=== PATIENT | female | born 1955 | race Caucasian/White ===

== ENCOUNTER → 2022-12-06 09:51 | Outpatient (CLI) | payer MEDICARE, OTHER, SELFPAY ==
--- NOTE | 2022-12-06 09:52 | DI.RAD.S_ITS ---
PROCEDURE: XR HIP W PEL IF DONE LT 2V INDICATIONS: left hip pain TECHNIQUE: AP pelvis with lateral view(s) of the left hip(s). COMPARISON: None. FINDINGS: Bones: No fractures or dislocations. Pelvic ring appears intact. No suspicious bony lesions. Mild bilateral hip joint space narrowing and periarticular osteophyte formation. Soft tissues: The visualized bowel gas pattern is normal. No suspicious soft tissue calcifications. IMPRESSION: Bilateral hip osteoarthritis. No acute fracture. No osseous lesion. If symptoms and/or clinical suspicion for pathology persist, further assessment with repeat, or advanced imaging (e.g., CT, MRI, or bone scan) may be helpful for further assessment. Dictated by: Joss Gruber M.D. on 12/06/2022 at 14:26 Approved by: Joss Gruber M.D. on 12/06/2022 at 14:26
== END ==
PROVIDERS: PCP Student in an Organized Health Care Education/Training Program; Referring Provider Student in an Organized Health Care Education/Training Program; Visit Provider Student in an Organized Health Care Education/Training Program
DX: M25.552 Pain in left hip (principal); M16.0 Bilateral primary osteoarthritis of hip
CPT/HCPCS: 73502

== ENCOUNTER → 2022-12-21 08:30 | Outpatient (CLI) | payer MEDICARE, OTHER, SELFPAY ==
--- NOTE | 2022-12-21 09:00 | DI.MRI.S_ITS ---
PROCEDURE: MR HIP LT WO CON INDICATIONS: left hip pain TECHNIQUE: Noncontrast coronal T1 spin echo and STIR through the bony pelvis. Coronal and axial T2 fast spin echo with fat saturation, sagittal T1 spin echo, and oblique axial T2 fast spin echo with fat saturation through the hip. COMPARISON: [facility], CR, XR HIP W PEL IF DONE LT 2V, 12/06/2022, 10:04. FINDINGS: Image quality: Excellent. Bones and joints: [id number] bilateral hip joint osteoarthritic changes are seen with superior joint space narrowing, subchondral sclerosis and small marginal osteophyte formation. There is no marrow edema. No intraosseous lesions or fractures. No avascular necrosis of the femoral heads. The visualized lower lumbar spine appears normally aligned. Tendons and ligaments: Distal left gluteus medius and minimus tendinosis at their insertion on greater trochanter is seen, without associated muscle atrophy. The nearby proximal iliotibial band also appears intact. The iliopsoas tendon appears intact, without adjacent bursal fluid collections or evidence for impingement syndrome. Tendinosis involving origins of hamstring tendons at ischial tuberosity is also noted. Labrum and cartilage: There is fraying of superior anterior left hip labrum at 1 to 2 o'clock position with signal abnormality consistent with superior anterior left hip labral tear. Diffuse thinning of articulating cartilages over left femoral head is also seen. The alpha angle of the femur is within normal limits at less than 55 degrees. Soft tissues: Visualized muscles demonstrate normal bulk and internal signal. Quadratus femoris muscle demonstrates no internal edema to suggest ischiofemoral impingement. The proximal sciatic neurovascular bundle appears normal adjacent to the hamstring tendons. No free pelvic fluid. Bladder wall thickness is normal. Genitourinary structures and bowel loops appear normal where visualized. IMPRESSION: 1. Tjhi-ab-[id number] bilateral hip joint osteoarthritis. No pelvic or hip fracture. No evidence of avascular necrosis. 2. Distal left gluteus medius and minimus tendinosis. Tendinosis involving hamstring tendon origins at ischial tuberosity. No other muscle or tendon signal abnormality is seen. 3. Suggestion of superior anterior left hip labral tear at 1 to 2 o'clock position. Dictated by: Reece Snyder M.D. on 12/23/2022 at 9:50 Approved by: Reece Snyder M.D. on 12/23/2022 at 9:54
== END ==
PROVIDERS: PCP Student in an Organized Health Care Education/Training Program; Referring Provider Student in an Organized Health Care Education/Training Program; Visit Provider Student in an Organized Health Care Education/Training Program
DX: M16.0 Bilateral primary osteoarthritis of hip (principal); M25.552 Pain in left hip
CPT/HCPCS: 73721

== ENCOUNTER 2023-02-27 10:34 | Day surgery (SDC) | payer MEDICARE, OTHER, SELFPAY ==
--- NOTE | 2023-02-27 | PATH_ITS ---
[facility] Accession Number: [id number] No. of containers..01 Tissue . 01 Material submitted: . cecum - CECAL POLYP . 01 Diagnosis: Cecal Polyp: Sessile serrated adenoma. MRV 03/04/2023 1636 Local . 01 Electronically signed: . Rusty Wang MD, PhD, Pathologist NPI- [id number] . 01 Gross description: . CECAL POLYP: Received in formalin is multiple fragment(s) of [place], soft tissue measuring 1.2 x 0.5 x 0.1 cm in aggregate submitted entirely in 1 cassette(s) /AAY 02/28/2023 0503 Local . 01 Pathologist provided ICD-10: D12.0 . 01 CPT . 683038 Specimen Comment: A courtesy copy of this report has been sent to [phone] Performed at: 01 [facility] [address] [place] [address], [place], [place] [id number] MD Zac Esposito MD Phone: [phone]
[2023-02-27 10:50] VITALS: BMI 40.6
[2023-02-27 10:59] VITALS: BP 154/88; PULSE 70; RESP 16; TEMP 36.4; O2SAT 99
[2023-02-27] MEDS: LACTATED RINGERS 1,000 ML 42 ML IV (11:05)
--- NOTE | 2023-02-27 11:37 | PM.HP.1 ---
History of Present Illness History of Present Illness Date Patient Seen: 02/27/23 Time Patient Seen: 11:37 Chief complaint: Colonoscopy Narrative: Qi is a 67-year-old woman with a personal history of colon polyps. She reports that she has never had a complete colonoscopy. Her last virtual colonoscopy was [address] in [place]. No family history of colon cancer. PFS Social History household members: spouse Smoking Status: Never smoker alcohol intake: current Meds Home Medications and Allergies Home Medications Medication Instructions Recorded Confirmed Type atenolol 50 mg tablet 50 mg PO DAILY 11/28/22 02/27/23 History spironolactone 25 mg tablet 25 mg PO DAILY 11/28/22 02/27/23 History levothyroxine 125 mcg capsule 125 mcg PO DAILY #90 caps 02/26/23 02/27/23 Rx Allergies Allergy/AdvReac Type Severity Reaction Status Date / Time atorvastatin [From Lipitor] AdvReac Intermediate Rash Verified 02/27/23 10:50 Exam Vital Signs (past 8 hours): - 02/27/23 10:59 Temperature 97.5 F L Pulse Rate 70 Respiratory Rate 16 Blood Pressure 154/88 H Pulse Oximetry 99 Oxygen Delivery Method Room Air Oxygen Delivery Method Room Air Const General: No acute distress Nutritional Appearance: obese Resp Effort & Inspection: normal respiratory effort Skin General: no rashes or lesions noted Assessment & Plan Assessment and plan (1) Colon cancer screening: Status: Acute Plan We reviewed the risks and benefits of colonoscopy and she would like to proceed.
--- NOTE | 2023-02-27 12:20 | PM.OP.COLON ---
Operative Date/Time/Diagnoses Date of procedure: 02/27/23 Time of procedure: 12:20 Pre-op diagnosis: History of polyps Post-op diagnosis: same Procedure & Clinicians Study performed: Colonoscopy Same procedure as scheduled: Yes Surgeon: Nader Owen Procedure Notes Procedure in detail: Surgeon: Nader Owen MD Anesthesia: Geeta Jara CRNA Procedure: The patient was brought to the endoscopy suite, placed in left lateral decubitus position. The patient was connected to monitoring devices. A time-out was performed. Sedation was administered. Once the patient was adequately sedated, a digital rectal exam was performed and was normal. The scope was then inserted and advanced with some difficulty to the cecum. It required abdominal pressure, repositioning into the supine position and the scope stiffener to reach the cecum. The scope was then slowly withdrawn over greater than 6 minutes. There was a 1 cm flat polyp in the cecum removed with a cold snare. There were rare diverticula in the sigmoid colon. The scope was retroflexed in the rectum. Internal hemorrhoids were noted. The scope was straightened and removed. The patient was awakened and brought to recovery. Scope withdrawal time: 14 minutes Sedation time: 38 minutes EBL: 2 mL Findings: Cecal polyp, rare sigmoid diverticula and internal hemorrhoids. Redundant colon Post-procedure Disposition: PACU
[2023-02-27 12:22] VITALS: BP 118/61; PULSE 63; RESP 16; TEMP 36.2; O2SAT 98
[2023-02-27 12:26] VITALS: BP 118/66; PULSE 61; RESP 16; TEMP 36.2; O2SAT 98
[2023-02-27 12:31] VITALS: BP 118/78; PULSE 63; RESP 16; TEMP 36.2; O2SAT 98
== END 2023-02-27 12:45 | disposition home or self-care (01) ==
PROVIDERS: PCP Student in an Organized Health Care Education/Training Program; Referring Provider Surgery; Visit Provider Surgery
PROC: 0DJD8ZZ Inspection of Lower Intestinal Tract, Via Natural or Artificial Opening Endoscopic (ICD-10-PCS; CPT 45378; principal; 2023-02-27 11:45)
DX: Z12.11 Encounter for screening for malignant neoplasm of colon (principal); Z86.010 Personal history of colon polyps; K57.30 Diverticulosis of large intestine without perforation or abscess without bleeding; K64.8 Other hemorrhoids; D12.0 Benign neoplasm of cecum
CPT/HCPCS: 45385; J1885; J2704

== ENCOUNTER → 2023-11-14 10:20 | Outpatient (CLI) | payer MEDICARE, OTHER, SELFPAY ==
[2023-11-14 12:21] LABS: Add Manual Diff / Slide Review NO; Basophils Absolute Auto 100 /uL (0-100); Basophils Percent Auto 0.7 % (0-2); Eosinophils Absolute Auto 100 /uL (0-450); Eosinophils Percent Auto 0.9 % (2-4); Hematocrit 42.1 % (36-46); Hemoglobin 14.4 g/dL (12.0-16.0); Lymphocytes Absolute Auto 1900 /uL (1100-4500); Lymphocytes Percent Auto 25.9 % (25-40); Mean Corpuscular HGB Conc 34.2 % (30-36); Mean Corpuscular Hemoglobin 32.2 PG (26-34); Mean Corpuscular Volume 93.9 fL (80-100); Monocytes Absolute Auto 700 /uL (0-900); Monocytes Percent Auto 8.9 % (3-14); Neutrophils Absolute Auto 4700 /uL (1500-7000); Neutrophils Percent Auto 63.6 % (50-75); Platelet Count 292 X10^3/uL (150-400); Red Blood Cell Count 4.48 X10^6/uL (4.0-5.2); Red Cell Distribution Width 12.4 % (11.6-14.8); White Blood Cell Count 7.4 X10^3/uL (4.5-11.0)
[2023-11-14 12:39] LABS: Alanine Aminotransferase 11 IU/L (<35); Albumin 4.1 g/dL (3.5-5.0); Albumin Globulin Ratio 1.3 (1.0-2.8); Alkaline Phosphatase 62 U/L (38-126); Aspartate Aminotransferase 19 IU/L (14-36); BUN Creatinine Ratio 17.8 (6-22); Bilirubin Total 1.5 mg/dL (0.2-1.3); Blood Urea Nitrogen 13 mg/dL (7-17); Calcium 9.5 mg/dL (8.4-10.2); Carbon Dioxide 29 mmol/L (22-32); Chloride 104 mmol/L (98-107); Cholesterol 253 mg/dL (140-199); Estimated Glomerular Filt Rate > 60 mL/min (>60); Globulin 3.2 g/dL (1.7-4.1); Glucose 99 mg/dL (80-110); HDL Cholesterol 42 mg/dL (40-60); HEMOLYSIS < 15 (0-50); LDL Cholesterol Calculated 181 mg/dL (<100); Potassium 3.7 mmol/L (3.4-5.1); Sodium 140 mmol/L (137-145); Total Protein 7.3 g/dL (6.3-8.2); Triglycerides 149 mg/dL (35-150)
[2023-11-14 12:55] LABS: Hemoglobin A1C% w Est Avg Glu 5.5 % (4.0-6.0)
[2023-11-14 13:10] LABS: TSH w/ Reflex to FT4 1.91 uIU/mL (0.47-4.68)
== END ==
PROVIDERS: PCP Student in an Organized Health Care Education/Training Program; Referring Provider Student in an Organized Health Care Education/Training Program; Visit Provider Student in an Organized Health Care Education/Training Program
DX: E07.9 Disorder of thyroid, unspecified (principal); E66.01 Morbid (severe) obesity due to excess calories; E03.9 Hypothyroidism, unspecified; Z13.220 Encounter for screening for lipoid disorders
CPT/HCPCS: 36415; 80053; 80061; 83036; 84443; 85025

== ENCOUNTER 2023-12-16 12:21 | Emergency (ER) | payer MEDICARE, OTHER, SELFPAY ==
[2023-12-16 12:34] VITALS: PULSE 47; RESP 16; O2SAT 96; BMI 41.3
--- NOTE | 2023-12-16 12:53 | ED_ITS ---
HPI - Trauma General Chief Complaint: Trauma Stated Complaint: fell last night- shoulder, knee pain Time Seen by Provider: 12/16/23 12:52 Source: patient Mode of arrival: Family Vehicle History of Present Illness HPI narrative: Patient is a 68-year-old female history of hypertension hypothyroidism hyperlipidemia presents to the emergency department after mechanical trip and fall yesterday. States that she was going down some stairs fell, states it was approximately 3 stairs, denies head strike denies loss of consciousness but had immediate pain to her left shoulder as well as her hips. Was able to stand bear weight ambulate immediately after this, states that she has had improved pain after the fall yesterday but is still having persistent left shoulder pain therefore decided come into the ED for further evaluation treatment. She has not on any blood thinners is able to stand bear weight ambulate unassisted. Related Data Home Medications Medication Instructions Recorded Confirmed levothyroxine 125 mcg tablet 125 mcg PO QAM 12/16/23 12/16/23 rosuvastatin 10 mg tablet 10 mg PO DAILY 12/16/23 12/16/23 Previous Rx's Medication Instructions Recorded atenolol 50 mg tablet 50 mg PO BID #60 tabs 11/14/23 spironolactone 25 mg tablet 25 mg PO DAILY #90 tabs 11/14/23 cyclobenzaprine 10 mg tablet 10 mg PO BEDTIME PRN muscle spasm 12/16/23 7 days #7 tabs naproxen 500 mg tablet (Naprosyn) 500 mg PO BID PRN pain 5 days #10 12/16/23 tabs Allergies Allergy/AdvReac Type Severity Reaction Status Date / Time atorvastatin [From Lipitor] AdvReac Intermediate Rash Verified 12/16/23 12:43 Review of Systems Review of Systems Narrative: General: Denies fever, chills, weight loss HEENT: Denies headache, eye drainage, eye irritation, head trauma, sore throat, voice change Cardiovascular: Denies any chest pain, palpitations, shortness of breath, tachycardia Respiratory: Denies any shortness of breath, cough, wheeze, stridor GI/: Denies any abdominal pain, nausea, vomiting, diarrhea, bright red blood per rectum, melanotic stools, urinary frequency, urinary retention, dysuria, hematuria MSK: Positive left shoulder pain, positive bilateral hip pain Skin: Denies any rashes, lesions, discoloration Neuro: Denies any headache, lightheadedness, dizziness, fainting, weakness Psych: Denies SI/HI Patient History Social History household members: spouse Smoking Status: Never smoker alcohol intake: current Smoking Status: Never smoker alcohol intake frequency: a few times a week Substance Use Type: does not use Exam Narrative Exam Narrative: General: Cooperative, comfortable, well-developed, not in acute distress HEENT: Normocephalic, atraumatic, PERRLA, normal sclera, eyelids normal, Neck: Active full range of motion, atraumatic Chest: Normal to inspection, negative crepitus, no overlying erythema ecchymosis Respiratory: Normal respiratory effort, not in acute respiratory distress, clear to auscultation bilaterally negative cough, wheeze, tachypnea, rhonchi, rales Cardiology: Regular rate rhythm negative gallop, murmur, rubs GI/: Normal to inspection, soft, nonrigid, no tenderness to palpation, exam deferred MSK: Full range of active range of motion of all 4 extremities, patient with ecchymosis noted to the anterior right thigh, otherwise no crepitus neurovascularly intact no tenderness to palpation of any bony prominences. Patient has full passive range of motion of the left shoulder however decreased active secondary to pain neurovascularly intact no overlying erythema ecchymosis Skin: No rashes lesions noted Neuro: Alert awake oriented x3, moves all 4 extremities spontaneously, cranial nerves intact, able to answer all questions appropriately follows commands appropriately Psych: Cooperative, negative suicidal or homicidal ideations Initial Vital Signs Initial Vital Signs: Vital Signs Pulse Rate 47 L 12/16/23 12:34 Respiratory Rate 16 12/16/23 12:34 Pulse Oximetry 96 12/16/23 12:34 Oxygen Delivery Method Room Air 12/16/23 12:34 Course Orders Ordered: ED Orders 12/16/23 12:52 XR shoulder LT min 2V Stat 12/16/23 12:58 XR pelvis 1-2V Stat Vital Signs Vital signs: Vital Signs - 8 hr 12/16/23 12:34 12/16/23 12:56 12/16/23 13:00 Pulse Rate 47 L 54 L 52 L Respiratory Rate 16 Pulse Oximetry 96 95 96 Oxygen Delivery Method Room Air 12/16/23 13:30 Pulse Rate 49 L Respiratory Rate Pulse Oximetry 98 Oxygen Delivery Method MDM - Trauma Differential Diagnosis Differential diagnosis: Likely other (Muscle contusion, fracture, abrasion) Imaging Data Extremity x-ray #1: Radiologist's Impression: [address] [address] XRay Report Signed Patient: Qi Mullins MR#: [id number] : 1955 Acct:[id number] Age/Sex: 68 / F Date of Service: 12/16/23 Loc: ED Accession Number: [id number] Procedure: XR pelvis 1-2V Ordering Provider: Ricky Mckay D.O. PROCEDURE: XR PELVIS 1-2V INDICATIONS: Pain after fall TECHNIQUE: 1 view(s) of the pelvis acquired. COMPARISON: None. FINDINGS: Bones: No fractures or dislocations. No suspicious bony lesions. Soft tissues: Visualized bowel gas pattern is normal. No suspicious soft tissue calcifications. IMPRESSION: No acute fracture. No osseous lesion. If symptoms and/or clinical suspicion for pathology persist, further assessment with repeat, or advanced imaging (e.g., CT, MRI, or bone scan) may be helpful for further assessment. Extremity x-ray #2: Radiologist's Impression: [address] [address] XRay Report Signed Patient: Qi Mullins MR#: [id number] : 1955 Acct:[id number] Age/Sex: 68 / F Date of Service: 12/16/23 Loc: ED Accession Number: [id number] Procedure: XR shoulder LT min 2V Ordering Provider: Ricky Mckay D.O. PROCEDURE: XR SHOULDER LT MIN 2V INDICATIONS: fall, pain TECHNIQUE: 3 views of the shoulder were acquired. COMPARISON: None. FINDINGS: Bones: No fractures or dislocations. No suspicious bony lesions. Visualized ribs appear intact. Soft tissues: No suspicious soft tissue calcifications. IMPRESSION: No acute fracture. No osseous lesion. If symptoms and/or clinical suspicion for pathology persist, further assessment with repeat, or advanced imaging (e.g., CT, MRI, or bone scan) may be helpful for further assessment. [facility] Narrative Medical decision making narrative: Patient is a 68-year-old female who presented after mechanical trip and fall for 24 hours ago without head strike not on blood thinners complaining of persistent left shoulder pain but denies any numbness weakness tingling, as well as bilateral hip pain. She was able to stand bear weight ambulate immediately after the fall, has had improved symptoms of her pain but given persistent pain to her left shoulder decided come into the ED for further evaluation treatment. X-rays performed here in the emergency department did not show any acute fr actures, patient neurovascularly intact in bilateral upper lower extremities patient's imaging physical exam symptoms more consistent with muscle contusion, patient was given strict return precautions she verbalized understanding of this and agrees to being discharged home with outpatient follow up, she will be sent home with analgesics. Discharge Plan Departure Patient Disposition: Home Clinical Impression: Contusion of muscle Activity Restrictions/Additional Instructions: Please follow up with primary care Please read the discharge instructions sheet carefully and bring all papers to all doctor follow-up visits, as it may contain information that your doctor may want to see. Disease processes change and evolve, if your symptoms worsen or if you develop any new symptoms that are concerning to you please return for evaluation. Your evaluation today does not show any evidence of any life- threatening/serious illnesses requiring admission to the hospital or surgery. Please follow-up with your doctor for re-evaluation in approximately 1 day. Seek immediate medical attention for any worrisome symptoms. Prescriptions: New cyclobenzaprine 10 mg tablet 10 mg PO BEDTIME PRN (Reason: muscle spasm) 7 Days Qty: 7 0RF naproxen [Naprosyn] 500 mg tablet 500 mg PO BID PRN (Reason: pain) 5 Days Qty: 10 0RF No Action atenolol 50 mg tablet 50 mg PO BID Qty: 60 5RF spironolactone 25 mg tablet 25 mg PO DAILY Qty: 90 3RF levothyroxine 125 mcg tablet 125 mcg PO QAM rosuvastatin 10 mg tablet 10 mg PO DAILY Referrals: Norma Albrecht MD [Primary Care Provider] - Stand Alone Forms: Patient Portal/API
[2023-12-16 12:56] VITALS: PULSE 54; O2SAT 95
--- NOTE | 2023-12-16 12:58 | DI.RAD.S_ITS ---
PROCEDURE: XR PELVIS 1-2V INDICATIONS: Pain after fall TECHNIQUE: 1 view(s) of the pelvis acquired. COMPARISON: None. FINDINGS: Bones: No fractures or dislocations. No suspicious bony lesions. Soft tissues: Visualized bowel gas pattern is normal. No suspicious soft tissue calcifications. IMPRESSION: No acute fracture. No osseous lesion. If symptoms and/or clinical suspicion for pathology persist, further assessment with repeat, or advanced imaging (e.g., CT, MRI, or bone scan) may be helpful for further assessment. Dictated by: Joss Gruber M.D. on 12/16/2023 at 14:13 Approved by: Joss Gruber M.D. on 12/16/2023 at 14:13
[2023-12-16 13:00] VITALS: PULSE 52; O2SAT 96
[2023-12-16 13:30] VITALS: PULSE 49; O2SAT 98
[2023-12-16 14:30] VITALS: BP 135/63; PULSE 54; O2SAT 99
== END 2023-12-16 15:06 | disposition home or self-care (01) ==
PROVIDERS: Emergency Provider Student in an Organized Health Care Education/Training Program; PCP Student in an Organized Health Care Education/Training Program
DX: S40.012A Contusion of left shoulder, initial encounter (principal); M25.552 Pain in left hip; M25.551 Pain in right hip; W10.9XXA Fall (on) (from) unspecified stairs and steps, initial encounter
CPT/HCPCS: 72170; 73030; 99281; 99283